=== PATIENT | male | born 1960 | race Caucasian/White ===

== ENCOUNTER 2022-05-23 11:07 | Inpatient (IN) ==
[2022-05-23] MEDS ORDERED: *HR* LORazepam 2 MG/ML VIAL IVP ONE (11:47)
[2022-05-23 12:17] LABS: Basophils # 0.1 K/mcL (0.0-0.2); Basophils % 0.6 %; Eosinophils # 0.1 K/mcL (0.0-0.6); Eosinophils % 0.5 %; Hematocrit 45.7 % (37.5-50.1); Hemoglobin 15.4 g/dL (12.9-16.9); Immature Granulocytes % 0.3 % (0-4); Lymphocytes # 1.9 K/mcL (0.6-4.6); Lymphocytes % 17.5 %; Mean Corpuscular HGB Conc 33.7 g/dL (31.6-35.5); Mean Corpuscular Hemoglobin 28.6 pg (28.0-33.3); Mean Corpuscular Volume 84.9 fL (83.0-100.0); Mean Platelet Volume 10.1 fL (9.4-12.4); Monocytes # 0.6 K/mcL (0.0-1.3); Monocytes % 5.2 %; Neutrophils # 8.2 K/mcL (1.6-8.9); Platelet Count 214 K/mcL (140-400); Red Blood Count 5.38 M/mcL (4.19-5.50); Red Cell Distribution Width 12.9 % (11.5-14.5); Segmented Neutrophils % 75.9 %; White Blood Count 10.8 K/mcL (4.3-11.1)
[2022-05-23 12:26] LABS: BUN/Creatinine Ratio 21 (6-26); Blood Urea Nitrogen 18 mg/dL (8-23); Carbon Dioxide 28 mEq/L (23-29); Chloride 105 mEq/L (98-107); Glucose 106 mg/dL (70-105); Osmolality,Calculated 280 (280-300); Potassium 4.1 mEq/L (3.5-5.1); Sodium 134 mEq/L (136-145)
[2022-05-23 13:13] LABS: Activated Partial Thrombo Time 35.1 Seconds (26.0-36.0); INR 1.1
[2022-05-23] MEDS ORDERED: Ondansetron 4 MG/2 ML VIAL IVP PRN (13:48)
[2022-05-23] MEDS ORDERED: Naloxone 0.4 MG/ML INJ IVP PRN (13:48)
[2022-05-23] MEDS ORDERED: *HR* Heparin 5,000 UNIT/ML VIAL IVP PRN ×2 (13:48)
[2022-05-23] MEDS ORDERED: *HR* Heparin 5,000 UNIT/ML VIAL IVP ONE (13:48)
[2022-05-23] MEDS ORDERED: Melatonin 3 MG TABLET PO PRN (13:48)
[2022-05-23] MEDS ORDERED: Heparin 25,000UNIT/250ML 1/2NS 25,000 UNIT/250 ML IV.SOLN IVC SCH (14:00)
[2022-05-23] MEDS ORDERED: Nitroglycerin 0.4 MG TAB.SUBL SL PRN (15:21)
[2022-05-23 15:34] LABS: Heparin anti-factor XA UFH < 0.04 IU/mL (0.30-0.70)
[2022-05-23 15:35] LABS: INR 1.1
[2022-05-23] MEDS: clonazePAM 1 MG TABLET PO PRN (17:18)
[2022-05-23 18:52] LABS: Hematocrit 44.8 % (37.5-50.1); Hemoglobin 14.9 g/dL (12.9-16.9); Mean Corpuscular HGB Conc 33.3 g/dL (31.6-35.5); Mean Corpuscular Hemoglobin 28.1 pg (28.0-33.3); Mean Corpuscular Volume 84.5 fL (83.0-100.0); Mean Platelet Volume 10.2 fL (9.4-12.4); Platelet Count 190 K/mcL (140-400); Red Cell Distribution Width 12.8 % (11.5-14.5); White Blood Count 10.3 K/mcL (4.3-11.1)
[2022-05-23 20:25] VITALS: TEMP 97.6
[2022-05-23] MEDS: Chlorhexidine Rinse 15 ML MOUTHWASH MM SCH (20:29)
[2022-05-23] MEDS ORDERED: 0.9 % Sodium Chloride 1,000 ML ONE (22:14)
[2022-05-24] MEDS ORDERED: 0.9 % Sodium Chloride 1,000 ML IVC SCH (00:01)
[2022-05-24] MEDS: clonazePAM 1 MG TABLET PO PRN (01:10)
[2022-05-24 03:14] LABS: Basophils # 0.1 K/mcL (0.0-0.2); Basophils % 0.6 %; Eosinophils # 0.1 K/mcL (0.0-0.6); Eosinophils % 0.8 %; Hematocrit 40.6 % (37.5-50.1); Hemoglobin 13.7 g/dL (12.9-16.9); Immature Granulocytes % 0.3 % (0-4); Lymphocytes # 2.3 K/mcL (0.6-4.6); Lymphocytes % 23.6 %; Mean Corpuscular HGB Conc 33.7 g/dL (31.6-35.5); Mean Corpuscular Hemoglobin 28.5 pg (28.0-33.3); Mean Corpuscular Volume 84.6 fL (83.0-100.0); Mean Platelet Volume 10.2 fL (9.4-12.4); Monocytes # 0.6 K/mcL (0.0-1.3); Monocytes % 6.3 %; Neutrophils # 6.6 K/mcL (1.6-8.9); Platelet Count 170 K/mcL (140-400); Red Cell Distribution Width 12.6 % (11.5-14.5); Segmented Neutrophils % 68.4 %; White Blood Count 9.7 K/mcL (4.3-11.1)
[2022-05-24 03:18] LABS: Heparin anti-factor XA UFH 0.15 IU/mL (0.30-0.70)
[2022-05-24 03:19] LABS: INR 1.1; Prothrombin Time 12.3 Seconds (9.4-12.1)
[2022-05-24 03:44] LABS: BUN/Creatinine Ratio 22 (6-26); Blood Urea Nitrogen 16 mg/dL (8-23); Calcium 9.3 mg/dL (8.6-10.3); Carbon Dioxide 25 mEq/L (23-29); Chloride 103 mEq/L (98-107); Cholesterol 139 mg/dL (< 200); Glucose 99 mg/dL (70-105); HDL Cholesterol 28 mg/dL (40-59); LDL Cholesterol,Calculated 70 mg/dL (< 100); Magnesium 1.6 mg/dL (1.6-2.6); Osmolality,Calculated 283 (280-300); Sodium 136 mEq/L (136-145); Triglycerides 207 mg/dL (< 150)
[2022-05-24 04:30] VITALS: BP 164/108; PULSE 76; O2SAT 95
[2022-05-24] MEDS: Chlorhexidine Rinse 15 ML MOUTHWASH MM SCH (05:36)
[2022-05-24] MEDS ORDERED: Aspirin 81 MG TAB.CHEW PO ONE (06:00)
[2022-05-24] MEDS ORDERED: CeFAZolin Syr 2,000MG/20 ML 2,000 MG/20 ML SYRINGE IVPB ONE (06:00)
[2022-05-24] MEDS ORDERED: DOBUTamine 1,000 MG/250 ML BAG ONE (06:18)
[2022-05-24] MEDS ORDERED: *HR* Vasopressin 20 UNIT/ML VIAL ONE (06:18)
[2022-05-24] MEDS ORDERED: NiCARdipine 2.5 MG/10 ML Syringe IVPB ONE (06:18)
[2022-05-24] MEDS ORDERED: Papaverine 60 MG/2 ML VIAL IVP ONE (06:46)
[2022-05-24] MEDS ORDERED: 0.9 % Sodium Chloride 1,000 ML ONE (08:04)
[2022-05-24] MEDS ORDERED: lisinopriL 10 MG TABLET PO SCH (09:00)
== END 2022-05-24 08:35 | disposition home or self-care (01) | DRG 282 ==
LOC: EMEROOARM 11:07 → 2NENU 11:07 → SUATTDRO 15:26 → 2NENU 16:09
PROVIDERS: ADMIT Hospitalist; ATTEND Hospitalist